=== PATIENT | male | born 1980 | race African-American/Black ===

== ENCOUNTER 2016-06-09 11:18 | Emergency (ER) | payer OTHER ==
[~2016-06-09] VITALS: Ht 175.3 cm; Wt 70.0 kg
[~2016-06-09 11:18] MED LIST: ALBU8I INH; PROZ20CA11 PO
[2016-06-09 11:19] VITALS: BP 141/93; PULSE 72; RESP 12; TEMP 98.1; O2SAT 100
[2016-06-09] MEDS ORDERED: IBUP800T23 PO (13:59)
[2016-06-09] MEDS ORDERED: IBUPROFEN 800 MG TAB PO ONE (14:00)
--- NOTE | 2016-06-09 14:00 | PD ---
HPI Chief Complaint: Lump, Cyst, Hernia Time Seen by Provider: 13:55 Travel History International Travel<30 days: No Contact w/Intl Traveler<30days: No Traveled to known affect area: No History of Present Illness HPI 35-year-old male presents emergency Department with complaint of a painful lump to the left aspect of the back of his head. He woke up with it there this morning. He doesn't know if he was hit by something while he was sleeping or if something bit him. He says he has spiders in his house. He says the area has decreased in size since this morning. Denies fever, chills, nausea, vomiting. Denies change in mentation, confusion, disorientation. No focal deficits or weakness. Denies change in vision. Denies Slurred speech. Reports waking up this morning with a headache but denies headache at this time. Pain to the area is aggravated with palpation. Denies drug use. Denies alcohol use. Reports tobacco use daily. No known allergies. No other modifying factors or associated signs and symptoms. PFSH Past Medical History Cardiovascular Problems: Yes (STATES HE HAS BEEN TOLD ONE SIDE OF HEART IS BIGGER THAN THE OTHER. ) Cerebrovascular Accident: Yes (2X CVA 2015) Diminished Hearing: No Past Surgical History Eye Surgery: Yes (LEFT EYE CHILD) Other Surgery: Yes (LEFT ARM REPAIR) Social History Alcohol Use: Yes (SOC) Tobacco Use: Yes (1/2 PPD) Substance Use: No (ADMITS TO SMOKING MARIJUANA PREVIOUSLY) Allergies-Medications (Allergen,Severity, Reaction): Coded Allergies: No Known Allergies (Verified , 06/09/16) Reported Meds & Prescriptions Reported Meds & Active Scripts Active Proair Hfa 8.5 GM Inh (Albuterol Sulfate) 90 Mcg/Act Aer 2 Puff INH Q4-6H PRN 108 mcg/actuation Ibuprofen 800 Mg Tab 800 Mg PO Q6HR PRN Prozac (Fluoxetine HCl) 20 Mg Cap 20 Mg PO DAILY Review of Systems Except as stated in HPI: all other systems reviewed are Neg Physical Exam Narrative GENERAL: Well-nourished, well-developed male patient, in no acute distress SKIN: Warm and dry. Left posterior aspect of scalp with a soft tender area on palpation; the areas without erythema, ecchymosis; possibly consistent with soft tissue swelling. No abrasion, laceration noted. HEAD: Atraumatic. Normocephalic. No facial droop noted. Tongue midline. EYES: Pupils equal and round at 3 mm with brisk reaction. No scleral icterus. No injection or drainage. PERRLA. EOMI. no raccoon eyes. ENT: Mucosa pink and moist. No erythema or exudates. No uvular edema. No uvular , palatal, or tonsillar deviation. Airway patent. Nasal turbinates appear normal without nasal blood, purulent drainage or septal hematoma. EARS: Bilateral pinnae and external canals appear within normal limits. Bilateral tympanic membranes without erythema, dullness or perforation, or hemotympanum. No grimes signs. NECK: Trachea midline. No lymphadenopathy. CARDIOVASCULAR: Regular rate and rhythm. No murmur appreciated. RESPIRATORY: No accessory muscle use. Clear to auscultation. Breath sounds equal bilaterally. GASTROINTESTINAL: Abdomen soft, non-tender, nondistended. Hepatic and splenic margins not palpable. Bowel sounds are active 4 quadrants. MUSCULOSKELETAL: No obvious deformities. No clubbing. No cyanosis. No edema. NEUROLOGICAL: Awake and alert. Oriented 3. No obvious cranial nerve deficits. Motor grossly within normal limits. Normal speech. No ataxia. No mid -line drift. Moves all extremities. 5/5 strength to all extremities. PSYCHIATRIC: Appropriate mood and affect; insight and judgment normal. Data Data Last Documented VS Vital Signs Date Time Temp Pulse Resp B/P Pulse Ox O2 Delivery O2 Flow Rate FiO2 06/09/16 11:19 98.1 72 12 141/93 100 Room Air Orders Ibuprofen (Motrin) (06/09/16 14:00) MDM Medical Decision Making Medical Screen Exam Complete: Yes Emergency Medical Condition: Yes Medical Record Reviewed: Yes Differential Diagnosis Bug bite, head injury, nonspecific soft tissue swelling Narrative Course 35-year-old male with an area of soft tissue swelling to to left, posterior scalp that is with tenderness on palpation. There is without erythema or signs of infection. Neuro exam is unremarkable. The patient Denies nausea, vomiting. On physical exam the patient is without raccoon eyes, grimes signs, rhinorrhea, or hemotympanum. I do not suspect open or depressed skull fracture , and the patient has no signs of basilar skull fracture. [place] CT Head Injury Rule suggests a head CT is not necessary for this patient and clears the patient for head injury without imaging. Ibuprofen administered in the ER. Ibuprofen prescribed for home. Patient also has history of asthma and is requesting albuterol inhaler refill. Ventolin inhaler prescription provided for refill. Patient is medically cleared and stable for discharge. Discussed reasons to return to the emergency department. Instructed patient to follow up with primary care provider. Patient agrees with treatment plan. The patients vital signs are stable and the patient is stable for outpatient follow-up and treatment. Patient discharged home, stable and in no acute distress. Diagnosis Primary Impression: Swelling, mass, or lump in head and neck Additional Impression: Medication refill Referrals: Primary Care Physician Patient Instructions: General Instructions, Medication Refill, ED Departure Forms: Tests/Procedures, Work Release Enter return to work date: Jun 10, 2016 Additional Instructions: Ibuprofen or Tylenol as directed and as needed for pain/inflammation Ice to affected area to decrease pain and inflammation Follow-up with primary care provider Return to the emergency department immediately with worsening of symptoms Med/Other Pt SpecificInfo: Prescription(s) given Scripts Albuterol 8.5 GM Inh (Proair Hfa 8.5 GM Inh)90 Mcg/Act Aer2 Puff INH Q4-6H PRN ( SOB/WHEEZING) #1 INHALER Ref 0 108 mcg/actuation Prov:Silvia Bowen 06/09/16 Ibuprofen 800 Mg [id number] Mg PO Q6HR PRN (PAIN) #30 TAB Ref 0 Prov:Silvia Bowen 06/09/16 Disposition: 01 DISCHARGE HOME Condition: Stable Silvia Bowen Jun 09, 2016 14:00
[2016-06-09] MEDS ORDERED: ALBUAER3 INH (14:10)
[2016-07-14] MEDS ORDERED: PROZ20CA11 PO ×2 (07:28→10:33)
[2016-10-05] MEDS ORDERED: PROZ20CA11 PO (08:55)
== END 2016-06-09 14:17 | disposition home or self-care (01) ==
LOC: NEPB 11:18
DX: R22.0 Localized swelling, mass and lump, head (principal); F17.210 Nicotine dependence, cigarettes, uncomplicated
CPT/HCPCS: 99282

== ENCOUNTER 2016-12-01 20:27 | Emergency (ER) | payer OTHER ==
[~2016-12-01] VITALS: Ht 175.3 cm; Wt 72.5 kg
[~2016-12-01 20:27] MED LIST changes: -ALBU8I INH; +ALBUAER3 INH; +IBUP800T23 PO
[2016-12-01 20:29] VITALS: BP 128/77; PULSE 72; TEMP 98.3; O2SAT 100
--- NOTE | 2016-12-01 20:33 | PD ---
Physical Exam Date Seen by Provider: Dec 01, 2016 Time Seen by Provider: 20:32 Narrative 35 yo male here for injury to right shoulder. Happened yesterday after trip and fall. No head injury or LOC. Pain with ROM of the shoulder. Pain is 7/10. Hurts to move the shoulder. Vitals are stable in triage. Awaiting Bed placement. Data Data Last Documented VS Vital Signs Date Time Temp Pulse Resp B/P Pulse Ox O2 Delivery O2 Flow Rate FiO2 12/01/16 20:29 98.3 72 128/[address] [facility] Medical Record Reviewed: Yes Supervised Visit with JARRED: No Jon Elias Dec 01, 2016 20:33
[2016-12-01] MEDS ORDERED: KETOROLAC TROMETHAMINE 60 MG/2 ML (IM) VIAL IM ONE (21:15)
[2016-12-01] MEDS ORDERED: ONDANSETRON ODT 4 MG TAB PO ONE (21:15)
--- NOTE | 2016-12-01 21:18 | PD ---
HPI Chief Complaint: Pain: Acute or Chronic Time Seen by Provider: 21:09 Travel History International Travel<30 days: No Contact w/Intl Traveler<30days: No Traveled to known affect area: No History of Present Illness HPI S/P FALL BACKWARDS ONTO STEPS TODAY, C/O RIGHT SIDED CHEST WALL PAIN, SHARP, 8/ 10, WORSE WITH MOVEMENT. PFSH Past Medical History Cardiovascular Problems: Yes (STATES HE HAS BEEN TOLD ONE SIDE OF HEART IS BIGGER THAN THE OTHER. ) Cerebrovascular Accident: Yes (2X CVA 2015) Diminished Hearing: No Past Surgical History Eye Surgery: Yes (LEFT EYE CHILD) Other Surgery: Yes (LEFT ARM REPAIR) Social History Alcohol Use: Yes (SOC) Tobacco Use: Yes (4-5 CIGS DAY) Substance Use: No (ADMITS TO SMOKING MARIJUANA PREVIOUSLY) Allergies-Medications (Allergen,Severity, Reaction): Coded Allergies: Seafood (Verified Allergy, Unknown, Swelling, 12/01/16) Reported Meds & Prescriptions Reported Meds & Active Scripts Active Percocet (Oxycodone-Acetaminophen) 5-325 mg Tab 1 Tab PO Q6H PRN Flexeril (Cyclobenzaprine HCl) 10 Mg Tab 10 Mg PO TID Review of Systems Except as stated in HPI: all other systems reviewed are Neg Musculoskeletal: Positive: Pain Physical Exam Narrative GENERAL: SKIN: Warm and dry. HEAD: Atraumatic. Normocephalic. EYES: Pupils equal and round. No scleral icterus. No injection or drainage. ENT: No nasal bleeding or discharge. Mucous membranes pink and moist. NECK: Trachea midline. No JVD. CARDIOVASCULAR: Regular rate and rhythm. RESPIRATORY: No accessory muscle use. Clear to auscultation. Breath sounds equal bilaterally. GASTROINTESTINAL: Abdomen soft, non-tender, nondistended. Hepatic and splenic margins not palpable. MUSCULOSKELETAL: Extremities without clubbing, cyanosis, or edema. No obvious deformities. PALPABLE PAIN TO PALPATION FULLY REPRODUCIBLE WITHOUT CREPITUS NEUROLOGICAL: Awake and alert. No obvious cranial nerve deficits. Motor grossly within normal limits. Five out of 5 muscle strength in the arms and legs. Normal speech. PSYCHIATRIC: Appropriate mood and affect; insight and judgment normal. Data Data Last Documented VS Vital Signs Date Time Temp Pulse Resp B/P Pulse Ox O2 Delivery O2 Flow Rate FiO2 12/01/16 22:22 16 12/01/16 20:29 98.3 72 128/77 100 Room Air Orders Ribs, Uni (W/Exp Cxr-Min 3vw) (12/01/16 ) Shoulder, Complete (>2vws) (12/01/16 ) Ketorolac Inj (Toradol Inj) (12/01/16 21:15) Ondansetron Odt (Zofran Odt) (12/01/16 21:15) Orphenadrine Inj (Norflex Inj) (12/01/16 21:30) MDM Medical Decision Making Medical Screen Exam Complete: Yes Emergency Medical Condition: Yes Medical Record Reviewed: Yes Differential Diagnosis CHEST WALL CONTUSION V STRAIN V FX V DISLOCATION Narrative Course UPON EVALUATION OF XRAYS AND CONFIRMATION BY RADIOLOGIST NO FX OR DISLOCATIONS NOTED, WILL D/C ON MUSCLE RELAXERS Diagnosis Primary Impression: Contusion of right back wall of thorax, initial encounter Scripts Oxycodone-Acetaminophen (Percocet)5-325 mg Tab1 Tab PO Q6H PRN (PAIN) #24 TAB Prov:Anders Wong MD 12/01/16 Cyclobenzaprine (Flexeril)10 Mg Tab10 Mg PO TID #21 TAB Prov:Anders Wong MD 12/01/16 Disposition: 01 DISCHARGE HOME Condition: Stable Anders Wong MD Dec 01, 2016 21:18
[2016-12-01] MEDS ORDERED: ORPHENADRINE INJ 60 MG/2 ML AMP IM ONE (21:30)
--- NOTE | 2016-12-01 21:50 | RADRPT ---
EXAM DATE/TIME: 12/01/2016 21:25 [facility] COMPARISON: No previous studies available for comparison. INDICATIONS : Patient tripped on the stairs and fell back on his scapula. MEDICAL HISTORY : Cardiovascular disease. SURGICAL HISTORY : None. ENCOUNTER: Initial ACUITY: 1 day PAIN SCORE: 10/10 LOCATION: Right Scapula FINDINGS: Multiple views of the right ribs were performed. There is no evidence of displaced fracture. No efrem tructive lesions or areas of periosteal thickening are seen. Expiratory view of the chest is negativ e for pneumothorax. The mediastinal structures are midline. CONCLUSION: Normal examination for a patient of this age. Roosevelt Ye MD on December 01, 2016 at 21:47 Board Certified Radiologist. This report was verified electronically.
--- NOTE | 2016-12-01 21:51 | RADRPT ---
EXAM DATE/TIME: 12/01/2016 21:30 [facility] COMPARISON: No previous studies available for comparison. INDICATIONS : Patient tripped on the stairs and fell back on his scapula. MEDICAL HISTORY : Cardiovascular disease. SURGICAL HISTORY : None. ENCOUNTER: Initial ACUITY: 1 day PAIN SCORE: 10/10 LOCATION: Right Scapula. FINDINGS: Multiple view examination of the right shoulder demonstrates no evidence of fracture or dislocation. The glenohumeral and acromioclavicular joints are maintained. There is normal range of motion betwe en internal and external rotation. Bony mineralization is normal. CONCLUSION: Unremarkable examination of the right shoulder. Roosevelt Ye MD on December 01, 2016 at 21:49 Board Certified Radiologist. This report was verified electronically.
[2016-12-01 22:22] VITALS: RESP 16
[2016-12-01] MEDS ORDERED: CYCL1TAB29 PO (22:28)
[2016-12-01] MEDS ORDERED: PERC5TAB12 PO (22:28)
== END 2016-12-01 23:18 | disposition home or self-care (01) ==
LOC: NEPD 20:27
DX: S20.221A Contusion of right back wall of thorax, initial encounter (principal); W19.XXXA Unspecified fall, initial encounter; I25.10 Atherosclerotic heart disease of native coronary artery without angina pectoris; Z86.73 Personal history of transient ischemic attack (TIA), and cerebral infarction without residual deficits
CPT/HCPCS: 71101; 73030; 96372; 99284; J1885; J2360

== ENCOUNTER 2017-09-05 20:40 | Emergency (ER) | payer OTHER ==
[~2017-09-05 20:40] MED LIST changes: -ALBUAER3 INH; +CYCL10TA PO; -IBUP800T23 PO; +PERC5TAB12 PO; -PROZ20CA11 PO
[2017-09-05 20:47] VITALS: BP 126/85; PULSE 86; RESP 18; TEMP 98.3; O2SAT 99
[2017-09-05] MEDS ORDERED: CLIN150C14 PO (21:26)
[2017-09-05] MEDS ORDERED: BACT800T5 PO (21:26)
[2017-09-05] MEDS ORDERED: oxyCODONE/ACETAMINOPHEN 5 MG/325 MG TAB PO ONE (21:30)
--- NOTE | 2017-09-05 21:36 | PD ---
HPI Chief Complaint: Skin Problem Time Seen by Provider: 20:56 Travel History International Travel<30 days: No Contact w/Intl Traveler<30days: No Traveled to known affect area: No History of Present Illness HPI This patient complains of abscess in his left armpit. Duration 1 week. Severity is moderate. He denies fever denies history of IV drug abuse or any medical problems. PFSH Past Medical History Cardiovascular Problems: Yes (STATES HE HAS BEEN TOLD ONE SIDE OF HEART IS BIGGER THAN THE OTHER. ) Cerebrovascular Accident: Yes (2X CVA 2015) Diabetes: No Patient Takes Glucophage: No Diminished Hearing: No Immunizations Current: Yes Tetanus Vaccination: > 5 Years Influenza Vaccination: No Past Surgical History Eye Surgery: Yes (LEFT EYE CHILD) Other Surgery: Yes (LEFT ARM REPAIR) Social History Alcohol Use: Yes (SOC) Tobacco Use: Yes (4-5 CIGS DAY) Substance Use: No (ADMITS TO SMOKING MARIJUANA PREVIOUSLY) Allergies-Medications (Allergen,Severity, Reaction): Coded Allergies: Fish Containing Products (Unverified Allergy, Unknown, Swelling, 09/05/17) Reported Meds & Prescriptions Reported Meds & Active Scripts Active Bactrim DS (Sulfamethoxazole-Trimethoprim) 800-160 Mg Tab 1 Tab PO BID Clindamycin (Clindamycin HCl) 150 Mg Cap 300 Mg PO Q8HR 7 Days Review of Systems General / Constitutional: No: Fever HENT: No: Headaches Cardiovascular: No: Chest Pain or Discomfort Respiratory: No: Cough Physical Exam Narrative GASTROINTESTINAL: Abdomen soft, non-tender, nondistended. Positive bowel sounds. No hepato-splenomegaly, or palpable masses. No guarding. Left axilla: Patient has 2 separate abscesses in the axilla. There are tender with a hint of fluctuance. No spreading cellulitis. SKIN: Focused skin assessment reveals no rash or ulcers. Skin is warm and dry. Palpation shows no induration or nodules. NECK: Symmetrical appearance, midline trachea. No mass or crepitus. Thyroid without enlargement, tenderness, or mass. Data Data Last Documented VS Vital Signs Date Time Temp Pulse Resp B/P (MAP) Pulse Ox O2 Delivery O2 Flow Rate FiO2 09/05/17 20:47 98.3 86 18 126/85 (99) 99 Orders Orders Oxycodone-Acetamin 5-325 Mg (Percocet (09/05/17 21:30) MDM Medical Decision Making Medical Screen Exam Complete: Yes Emergency Medical Condition: Yes Medical Record Reviewed: Yes Differential Diagnosis Abscess, boil, cellulitis Narrative Course I have reviewed the patient's electronic medical record. Patient has 2 abscesses in his left axilla. We discussed the incision and drainage procedure at length. He provides verbal consent. Procedure note: I kareem 10 cc of lidocaine with epinephrine. I started to inject the most lateral abscess but the patient started to totally go berserk. He started flailing his arm and getting anxious and panicky. He would not sit still. I re-tried multiple times to anesthetize these but he does not cooperate. His significant other at bedside is getting very frustrated with him and basically walked out and said she will be waiting in the car for him. Unfortunately he is being very childlike and uncooperative. There is no way I can safely incise and drain these abscesses the way he is acting. So this incision and drainage is a failure. We will follow back to have him use warm compresses and I have prescribed him a combination of clindamycin and Bactrim DS I am not sure if these measures will be successful but that is all he is allowing me to do Diagnosis Primary Impression: Cutaneous abscess of left axilla Med/Other Pt SpecificInfo: Prescription(s) given Scripts Sulfamethoxazole-Trimethoprim (Bactrim DS) 800-160 Mg Tab 1 TAB PO BID for Infection, #14 TAB 0 Refills Prov: Parker Knutson MD 09/05/17 Clindamycin (Clindamycin) 150 Mg Cap 300 MG PO Q8HR for Infection for 7 Days, CAP 0 Refills Prov: Parker Knutson MD 09/05/17 Disposition: 01 DISCHARGE HOME Condition: Stable Parker Knutson MD September 05, 2017 21:36
== END 2017-09-05 22:02 | disposition home or self-care (01) ==
LOC: NEPD 20:40
DX: L02.412 Cutaneous abscess of left axilla (principal); F17.210 Nicotine dependence, cigarettes, uncomplicated
CPT/HCPCS: 99283